=== PATIENT | male | born 1975 | race Caucasian/White ===

== ENCOUNTER 2019-03-24 03:28 | Inpatient (IN) | payer OTHER ==
[~2019-03-24] VITALS: Ht 177.8 cm; Wt 88.5 kg
[2019-03-24 03:34] VITALS: BP 145/73
[2019-03-24] MEDS ORDERED: PREDNISONE 10 M10 MG PO (03:49)
[2019-03-24 03:57] LABS: ABSOLUTE LYMPHOCYTES 0.9 thou/uL (0.8-5.3); ABSOLUTE MONOCYTES 0.4 thou/uL (0.0-1.2); ABSOLUTE NEUTROPHILS 13.8 thou/uL (1.6-8.1); BASOPHILS 0.2 %; EOSINOPHILS 0.1 %; HEMATOCRIT 40.7 % (42.0-52.0); HEMOGLOBIN 13.9 gm/dL (14.0-18.0); LYMPHOCYTES 5.9 %; MCHC 34.2 g/dL (28.0-37.0); MCV 87.7 fL (80.0-100.0); MONOCYTES 2.4 %; MPV 8.7 fl. (7.2-11.1); NUCLEATED RBCS 0 /100WBC; PLATELET COUNT* 185 thou/uL (150-400); POLYS 91.4 %; RBC 4.64 mil/uL (4.50-6.00); RDW-CV 12.3 % (10.5-14.5)
[2019-03-24 04:06] LABS: CALCIUM 9.4 mg/dL (8.5-10.1)
[2019-03-24 04:10] LABS: ALBUMIN 3.6 g/dL (3.4-5.0); TOTAL BILIRUBIN 0.4 mg/dL (<0.1-1.0); TOTAL PROTEIN 7.4 g/dL (6.4-8.2)
--- NOTE | 2019-03-24 06:58 | NUR ---
THIS NURSE RECIEVED REPORT FROM SHEY GONZALEZ. THIS NURSE TO ASSUME PT CARE AT THIS TIME.
[2019-03-24 07:39] VITALS: BP 120/67
[2019-03-24 10:59] VITALS: BP 119/69
[2019-03-24 12:00] VITALS: BP 101/59
--- NOTE | 2019-03-24 13:10 | NUR ---
ASSUME CARE OF PT. PT RESTING IN BED, DENIES NEEDS AT THIS TIME. FAMILY AT BS. CALL LIGHT WITHIN REACH
--- NOTE | 2019-03-24 13:49 | NUR ---
PT GIVEN SOAPS SUDS ENEMA. PT TOLERATED WELL
[2019-03-24 16:00] VITALS: BP 117/63
--- NOTE | 2019-03-24 19:58 | NUR ---
I ASSUMED CARE OF THE PATIENT AT 1400. HE IS ALERT AND ORIENTED X4 AND IS UP AD TESSIE. BED IS IN THE LOW LOCKED POSITION AND CALL LIGHT IS IN REACH. HOURLY ROUNDING WAS COMPLETED AND PATIENT NEEDS ARE MET. SPENT PART OF THE DAY WAITING ON ANTIBIOTIC FROM PHARMACY, BUT ITS STARTED NOW. ID WAS CONSULTED. FEVER IS MANAGED AND ARM PAIN WITH PRN MEDS. WILL CONTINUE TO MONITOR.
[2019-03-24 20:00] VITALS: BP 120/78
--- NOTE | 2019-03-25 06:26 | NUR ---
THIS NURSE ASSUMED CARE OF PT 03/24/19 AT 1900, PT IS ALERT AND ORIENTED X4, IV ABX INFUSING, PTS TEMP IS 98.2, NO S/S ADVERSE REACTION NOTED, PT RT ARM CONTINUES REDDENED AND SWOLLEN, WARM TO TOUCH, PT MEDICATED FOR PAIN X1 WITH PO MEDS THIS SHIFT OTHERWISE DENIES PAIN, PT UP AD TESSIE, EXPRESSES NO COMPLAINTS, THE PATIENT DOES HAVE QUESTIONS ABOUT WHETHER OR NOT HE IS A DIABETIC, ACCUCHECKS CONTINUE TO BE MONITORED, PT IS TOLD THAT A LAB TEST HAS BEEN ORDERED AND HE CAN SPEAK WITH THE PHYSICIAN ABOUT THE RESULTS IN THE MORNING, PTS SIGNIFICANT OTHER AT BEDSIDE, BED IN LOWEST POSITION WITH CALL LIGHT WITHIN REACH
[2019-03-25 11:31] LABS: ABSOLUTE EOSINOPHILS 0.1 thou/uL (0.0-0.7); ABSOLUTE LYMPHOCYTES 2.2 thou/uL (0.8-5.3); ABSOLUTE MONOCYTES 0.7 thou/uL (0.0-1.2); ABSOLUTE NEUTROPHILS 8.9 thou/uL (1.6-8.1); BASOPHILS 0.3 %; EOSINOPHILS 0.7 %; HEMATOCRIT 39.1 % (42.0-52.0); HEMOGLOBIN 13.3 gm/dL (14.0-18.0); LYMPHOCYTES 18.3 %; MCH 29.8 pg (26.0-34.0); MCV 87.7 fL (80.0-100.0); MONOCYTES 5.7 %; MPV 8.2 fl. (7.2-11.1); NUCLEATED RBCS 0 /100WBC; PLATELET COUNT* 189 thou/uL (150-400); RBC 4.45 mil/uL (4.50-6.00); RDW-CV 12.6 % (10.5-14.5); WBC 11.9 thou/uL (4.0-11.0)
[2019-03-25 11:38] LABS: CALCIUM 8.9 mg/dL (8.5-10.1); CREATININE 0.8 mg/dL (0.6-1.3); POTASSIUM 3.8 mmol/L (3.5-5.1)
--- NOTE | 2019-03-25 13:57 | NUR ---
PT.ALERT AND ORIENTED. LIVES WITH . HE WORKS [employer]. NO USE OF DME OR HX OF HOME HEALTH. IS INDEPENDENT. HE DOES NOT FEEL HE WILL HAVE ANY DISCHARGE NEEDS. GAVE AND DISCUSSED DPOA FOR HEALTH CARE INFORMATION.
[2019-03-25 15:32] VITALS: BP 132/85
[2019-03-25 16:06] LABS: GLYCOHEMOGLOBIN (HGB A1C) 5.7 % (4.8-5.6)
[2019-03-25 20:00] VITALS: BP 137/81
--- NOTE | 2019-03-26 05:36 | NUR ---
ASSUMED PATIENT CARE AT 1900. PATIENT ALERT AND ORIENTED TIMES FOUR. MINOR COMPLAINTS OF PAIN NOTED, CONTROLLED WITH ORAL MEDICATIONS. CHOCOLATE DIPPER AND HOURLY ROUNDING COMPLETED DOCUMENTED
[2019-03-26 07:40] VITALS: BP 118/77
--- NOTE | 2019-03-26 09:49 | CON ---
[address] [address] CONSULTATION Name: DAVID MENDOZA Room: [address] IN .R.#: [id number] Admission: 03/24/19 Attend Phys: Sharon Rodriguez MD Discharge: Date of : 77 Report #: [id number] THIS REPORT FOR: //name// CC: FAM physician/PCP Sharon Rodriguez DATE OF SERVICE: 03/25/2019 ATTENDING PHYSICIAN: Dr. Rodriguez. REASON FOR EVALUATION: Right forearm skin and soft tissue infection with cellulitis, complicated by likely drug hypersensitivity to cephalexin. HISTORY OF PRESENT ILLNESS: Chart reviewed, patient examined. This 44-year-old otherwise a healthy man who developed a pinpoint lesion on his left forearm. He noted over the course of 24-36 hours had increasing pain, redness, heat as well as swelling. There was a hemorrhagic component as well. He was ?bit by spider. It did worsen and thought there was likely infection, was evaluated by physician and started on cephalexin. He did recall later as he developed a pruritic type eruption over his torso. HE WAS ALLERGIC TO KEFLEX. Due to concerns about worsening overall status, it is not clear that he had systemic illness. Denies any anorexia, poor p.o. intake. No recent fevers. He did present to the Emergency Room and subsequently admitted and placed on vancomycin. Clinically, he has improved. He still has moderate degree of pain, is not encephalopathic. Denies any pulmonary or gastrointestinal related complaints. ALLERGIES: CEPHALEXIN. MACROLIDES. MEDICATIONS: Include vancomycin, and p.r.n. analgesics. PAST MEDICAL HISTORY: Otherwise, unremarkable. SOCIAL HISTORY: Illicit drug use, nonsmoker. Occasional ethanol. FAMILY HISTORY: Noncontributory. REVIEW OF SYSTEMS: Otherwise, unremarkable 10-point review of systems with the exception of the above in the history of present illness. PHYSICAL EXAMINATION: GENERAL: He is alert, cooperative, appropriate, he is in mild distress, is not encephalopathic. VITAL SIGNS: Temperature 98.2, pulse 65, respirations 16, blood pressure 120/78. SKIN: Warm, dry, [place] [address] CONSULTATION Name: KELLYDAVID Kenny Room: [address] IN [facility]#: [id number] Admission: 03/24/19 Attend Phys: Sharon Rodriguez MD Discharge: Date of : 77 Report #: [id number] HEENT: Normocephalic. Extraocular muscles intact. NECK: Supple. LUNGS: Clear to auscultation. HEART: Regular rate and rhythm without murmur. ABDOMEN: Soft, nontender, nondistended. EXTREMITIES: Notable left distal lower extremity and over the proximal forearm dorsal aspect has a series of subcutaneous appears to be contused areas of hemorrhagic associated with erythrodermic type eruption extends on to the arm. There is some degree of pain at this point. I do not appreciate any fluctuance or likely drainable focus. ASSESSMENT: Skin and soft tissue infection, left forearm. Continue vancomycin, seemingly HAS A HYPERSENSITIVITY TO CEPHALOSPORINS AND REPORTEDLY TO MACROLIDES WELL. We will likely avoid beta lactams in this setting for the moment. Continue elevation of the limb. We will likely add compression here with a sleeve hopefully in the next 24 hours. Discussed with the patient and spouse. <ELECTRONICALLY SIGNED> By: David Trotter MD 03/26/19 [id number] Trotter MD /nt
[2019-03-26] MEDS ORDERED: MINOCIN50 MG PO (14:10)
[2019-03-26 14:11] VITALS: BP 118/77
--- NOTE | 2019-03-26 14:20 | NUR ---
DISCHARGE TO HOME. DISCHARGE INSTRUCTIONS REVIEWED W/ PATIENT, PRESENT IN . PATIENT STATES VERBALLY OF UNDERSTANDING. PRESCRIPTION GIVEN TO . COPY OF DISCHARGE INSTRUCTIONS GIVEN TO PATIENT. IV SL DISCONTINUED, COTTON BALL/TAPE APPLIED TO SITE. BELONGINGS GATHERED PER PATIENT/. ESORTED PER PEDIS TO HOSPITAL ENTRANCE W/ WOOD TURNER PRESENT. NO FURTHER NURSE NEEDS VOICED. PATIENT WEARING COMPRESSION STOCKING TO LEFT ARM AT TIME OF DISCHARGE. LEFT ARM NOTED REDDENED FROM WRIST TO MID UPPER ARM, FOREARM SWELLING LESSENED FROM YESTERDAY. PATIENT DENIES PAIN W/ ELEVATION OF LEFT ARM. DENIES NEED FOR PAIN MED PRIOR TO DISCHARGE. ~TJRN
== END 2019-03-26 14:20 | disposition home or self-care (01) | DRG 603 ==
LOC: M.ERS 03:28 → M.ORTHSURG 03:54 → M.TBA-ER 03:54 → M.ORTHSURG 12:02
PROVIDERS: Emergency Medicine Emergency Medical Services; Internal Medicine; ADMIT Family Medicine
DX: L03.114 Cellulitis of left upper limb (principal); R65.10 Systemic inflammatory response syndrome (SIRS) of non-infectious origin without acute organ dysfunction; R73.9 Hyperglycemia, unspecified; T36.1X5A Adverse effect of cephalosporins and other beta-lactam antibiotics, initial encounter; T36.8X5A Adverse effect of other systemic antibiotics, initial encounter; Y92.89 Other specified places as the place of occurrence of the external cause; Z79.899 Other long term (current) drug therapy; Z88.1 Allergy status to other antibiotic agents